=== PATIENT | female | born 1970 | race Caucasian/White ===

== ENCOUNTER 2017-03-01 06:50 | Day surgery (SDC) | payer BC ==
[~2017-03-01] VITALS: Ht 172.7 cm; Wt 101.6 kg
[~2017-03-01 06:50] MED LIST: ADIPEX-P37.5 MG PO; MULTIVITAMINS1 EAC7 PO; VITAMIN D2000 UNI1 PO
[2017-03-01] MEDS ORDERED: WELLBUTRIN SR100 MG PO (07:44)
[2017-03-01] MEDS ORDERED: ZOLOFT50 MG PO (07:45)
[2017-03-01] MEDS ORDERED: OXYCODON-ACETA1 EAC2 PO (11:29)
[2017-03-01] MEDS ORDERED: IBUPROFEN600 MG PO (11:29)
[2017-03-01] MEDS ORDERED: MAPAP325 MG PO (11:29)
--- NOTE | 2017-03-01 11:51 | NUR ---
03/01/17 1151 Wilma Clifton 1118 PT RESP EVEN AND UNLABORED. 1120 ORAL AIRWAY REMOVED, PT MAINTAINING OWN AIRWAY. 1126 O2 REMOVED O2 SAT 100% 1130 MD AT BEDSIDE. 1149 PT VSS HEADED TO DS. 1151 PT O2 SAT 88%, PLACE ON 2L NC. O2 SAT INCREASED TO 97%.
--- NOTE | 2017-03-01 12:01 | NUR ---
ICED WATER AND JELLO GIVEN. CALL LIGHT W/IN REACH.
--- NOTE | 2017-03-01 13:09 | NUR ---
IN TO CHECK ON PT, PT SLEEPING. AWAKEN EASILY. VITALS OBTAINED. PT RATES PAIN A 4/10 AT THE UMBILICUS. JELLO GIVEN AND SANDWICH ORDERED. CALL LIGHT IN PLACE.
--- NOTE | 2017-03-01 14:21 | NUR ---
IN TO CHECK ON PT. PT RATES PAIN A 3/10 AT THE UMBILICUS, TYLENOL GIVEN PER PT REQUEST. PT NOTED TO HAVE EATEN SANDWICH. PT ASSISTED UP TO BATHROOM WITH STANDBY ASSIST FROM RN. PT VOIDED 250 MLS OF CLEAR YELLOW URINE. PT ASSISTED BACK TO BED. TOLERATED WELL. PT TO CALL RIDE HOME.
--- NOTE | 2017-03-01 15:16 | NUR ---
LE: 2021 IN TO SEE PT, PT DRESSED SITTING AT BEDSIDE. PT RATES PAIN 2/10. PT STATE HER RIDE IS HERE. DISCHARGE INSTRUCTIONS GIVEN. RX GIVEN TO PT TO HAND CARRY TO PHARMACY. ALL QUESTIONS ANSERERED. PT AMBULATES TO . TOLERATED WELL AND PT STATES " I AM READY TO GO HOME."
--- NOTE | 2017-03-02 13:21 | OR ---
[facility] [address] [place], [place] [address] Signed DATE OF OPERATION: 03/01/2017 SURGEON: Vin Loo MD PREOPERATIVE DIAGNOSIS: Chronic cholecystitis with gallstones. POSTOPERATIVE DIAGNOSIS: Chronic cholecystitis with gallstones. PROCEDURE: 1. Laparoscopic cholecystectomy with intraoperative cholangiogram. 2. Surgeon-directed fluoroscopy. SURGEON: Vin Loo MD. ANESTHESIA: General endotracheal. Heide Blanco CRNA and local 10 mL of 0.25% Marcaine with epinephrine. INDICATION: This 46-year-old white woman is a patient of KIM Del Valle and has had bouts of right subcostal and right posterior thoracic pain associated with nausea. A gallbladder ultrasound was performed confirming a large number of small gallstones within the gallbladder. She is admitted at this time to undergo cholecystectomy preferably by laparoscopic approach understanding the risks of bleeding, infection, bile duct injury, need for open procedure, and of course failure to cure her symptoms. Understands and she wished to proceed. FINDINGS: The gallbladder was chronically inflamed. The liver was normal. Cholecystectomy was performed showing multiple small yellow mulberry gallstones. Cholangiogram was normal. A few small stones were spilled and these were gathered up entirely. DESCRIPTION OF PROCEDURE: The patient was brought to the operating room, given a general endotracheal anesthetic. Preoperative antibiotic Ancef was given. Sequential compression device stockings used and heparin subcutaneously administered. The abdomen was prepared with a chlorhexidine solution and draped sterilely. An infraumbilical incision was made and using an open Electronically Signed By: VIN LOO MD 03/02/17 1321 PATIENT NAME: SURYA BIANCHI OPERATIVE REPORT DATE OF : 66 PHYSICIAN: VIN LOO MD REPORT #: [id number] REPORT IS CONFIDENTIAL AND NOT TO BE RELEASED WITHOUT AUTHORIZATION [facility] [address] [place], [place] [address] Signed Licha cannula technique, pneumoperitoneum was achieved at level 14 mmHg of carbon dioxide gas. Intraabdominal inspection showed no sign of ascites or carcinomatosis. The liver was normal. The gallbladder was chronically inflamed. Three additional trocars were placed in usual configuration in the subxiphoid, right midclavicular, and right anterior axillary line. The gallbladder was elevated cephalad and retracted laterally. Using blunt and electrocautery dissection, the triangle of Calot dissected free ultimately identifying well the cystic artery and cystic duct. A clip was applied across gallbladder cystic duct junction and a transverse choledochotomy made in the cystic duct. Egress of clear bile was noted upon retrograde milking of the duct. Using an Phillips type cholangiocatheter, intraoperative cholangiography was undertaken showing free flow of contrast in biliary tree with prompt emptying into the duodenum. Retrograde filling was normal and showing no sign of anomaly. Catheter was removed and cystic duct was triply clipped and divided and gallbladder dissected free in a retrograde fashion using electrocautery. The gallbladder did suffer a small defect in it spilling a few small stones. The gallbladder was placed in an endobag and extracted through the infraumbilical port site. Irrigation was undertaken in subhepatic space and small spilled gallstones were gathered up with meticulous care. This includes lateral to the liver and over the dome of the liver. Ultimately, all of the fluid was suctioned free and there were no evident remaining stones. The trocars were removed under direct visualization showing no sign of bleeding. The infraumbilical fascial incision was reapproximated with interrupted 0 Vicryl suture. All wounds were copiously irrigated with saline solution. Skin closed with interrupted 3-0 Vicryl. Steri-Strips were applied. The patient was ultimately extubated and transported to recovery room in good condition having suffered no complications. Sponge, needle, and instruments counts reported as correct x3. MD TIKI Hodges/ALMAL /[id number] Electronically Signed By: VIN LOO MD 03/02/17 1321 PATIENT NAME: SURYA BIANCHI OPERATIVE REPORT DATE OF : 66 PHYSICIAN: VIN LOO MD REPORT #: [id number] REPORT IS CONFIDENTIAL AND NOT TO BE RELEASED WITHOUT AUTHORIZATION [address] [address] Signed cc: KIM Del Valle Electronically Signed By: VIN LOO MD 03/02/17 1321 PATIENT NAME: SURYA BIANCHI CHITRA OPERATIVE REPORT DATE OF : 66 PHYSICIAN: VIN LOO MD REPORT #: [id number] REPORT IS CONFIDENTIAL AND NOT TO BE RELEASED WITHOUT AUTHORIZATION
== END 2017-03-01 15:00 | disposition home or self-care (01) ==
LOC: DS 06:50
PROVIDERS: Surgery
PROC: BF12YZZ Fluoroscopy of Gallbladder using Other Contrast (ICD-10-PCS; 2017-03-01)
PROC: 0FT44ZZ Resection of Gallbladder, Percutaneous Endoscopic Approach (ICD-10-PCS; principal; 2017-03-01 09:00)
DX: K80.10 Calculus of gallbladder with chronic cholecystitis without obstruction (principal); Z90.710 Acquired absence of both cervix and uterus
CPT/HCPCS: 00790; 74300; J0330; J0690; J1100; J1644; J1885; J2250; J2405; J2704; J3010; J7120; Q9967

== ENCOUNTER 2020-02-29 11:23 | Observation (INO) | payer BC ==
[~2020-02-29] VITALS: Ht 172.7 cm; Wt 201.9 kg
[~2020-02-29 11:23] MED LIST changes: +CLOBETASOL PROP15 GM TOP; +COLESTID1 GM PO; +IBUPROFEN600 MG PO; +MAPAP325 MG PO; +ONE DAILY FOR1 EACH PO; +OXYCODON-ACETA1 EAC2 PO; +PHENTERMINE HCL30 MG PO; +PROPRANOLOL HCL20 MG PO; +VITAMIN B122500 MC1 PO; +WELLBUTRIN SR100 MG PO; +ZOLOFT50 MG PO
[2020-02-29] MEDS ORDERED: MELOXICAM7.5 MG PO (11:46)
[2020-02-29] MEDS ORDERED: ADIPEX-P37.5 MG PO (11:47)
--- NOTE | 2020-02-29 16:07 | NUR ---
1535: PT ARRIVED TO MED SURG. PT DENIES ANY PAIN OR NAUSEA AT THIS TIME. ADMITTING THE PT AND GETTING HER READY FOR SURGERY R/T APPENDICITIS. SEE ASSESSMENT.
--- NOTE | 2020-02-29 16:14 | NUR ---
1613: PT TAKEN TO THE OR BY ALISON HOWELL AT THIS TIME.
--- NOTE | 2020-02-29 17:41 | NUR ---
02/29/20 1741 Lexi Draper 1735 PATIENT ARRIVES TO PACU AWAKE OFF/ON, BUT DROWSY. RESP EVEN AND UNLABORED, ROOM AIR SATS >97%. PATIENT ABLE TO PUT HER DENTURES BACK IN AND GLASS ARE BACK ON. PATIENT DENIES PAIN OR NAUSEA.
--- NOTE | 2020-02-29 18:09 | NUR ---
1805: Pt returned to room 123 from PACU. Pt states her pain is a 2/10 and is well controled. VSS. ABD dressings of gauze and tape x3 all CDI with ice in place. SCD's on and running. Pt reminded to not get up without assistance with understanding stated. Call perry within reach.
--- NOTE | 2020-02-29 18:34 | NUR ---
Pt resting in her bed visiting with her . She states her pain level is "good".
--- NOTE | 2020-02-29 19:54 | NUR ---
PATIENT'S ROCEPHIN IS DONE, HOOKING UP LR AT 100MLS/HR. AT BEDSIDE AND CALL LIGHT IN REACH. PAIN IS UNDER CONTROL.
--- NOTE | 2020-02-29 20:29 | NUR ---
PATIENT UP TO THE BATHROOM AND VOIDED AND DID FINE, PATIENT STANDING FOR AWHILE AND DOING GREAT. PATIENT'S IN ROOM AT BED SIDE.
--- NOTE | 2020-02-29 21:04 | OR ---
[facility] [address] [place], [place] [address] Signed DATE OF OPERATION: 02/29/2020 SURGEON: Cheyenne Garcia MD PREOPERATIVE DIAGNOSIS: Acute appendicitis. POSTOPERATIVE DIAGNOSIS: Acute suppurative appendicitis. PROCEDURE: Laparoscopic appendectomy. ESTIMATED BLOOD LOSS: Minimal. INDICATIONS: Yaron is a 49-year-old female, who woke up this morning with periumbilical and right lower quadrant abdominal pain. She has had some nausea and diarrhea. She came to emergency room for evaluation. She was tender lateral to McBurney's point. White count was elevated. Urinalysis probably has some bacteria in it. COVID was negative. CT scan confirmed her inflamed dilated and thickened appendix lateral to the cecum. I have been asked to see her as a general surgeon on-call. I met with Yaron in the emergency room and we reviewed the above findings. We reviewed the location and function of the appendix. We discussed laparoscopic versus open appendectomy. We discussed the expected intraop and postop course. She understands there is risk including, but not limited to bleeding, infection, scarring, change in contour of the skin, damage to bowel, appendiceal stump leak, postoperative intraabdominal abscess, incisional hernias and other unforeseen comorbidities. She had expressed understanding and wished to proceed. PROCEDURE NOTE: Yaron was taken into the operating room and placed in supine position under general endotracheal tube anesthesia. She was given a preoperative antibiotic in the emergency room. She was given subcutaneous heparin along with SCDs. A Fleming catheter was inserted with return of clear yellow urine. She was then prepped and draped in the usual sterile fashion. We placed our trocars in the usual positions under direct visualization of the camera without difficulty. We can see she has had a previous gastric sleeve procedure. She had just a few adhesions in the right mid quadrant of her abdomen from her previous laparoscopic surgeries. It took just a minute with the laparoscopic Metzenbaum scissors to take those down. We then were able to elevate the Electronically Signed By: CHEYENNE GARCIA MD 02/29/20 2104 PATIENT NAME: YARON BIANCHI OPERATIVE REPORT DATE OF : 66 REPORT #: [id number] PHYSICIAN: CHEYENNE GARCIA MD PCP: JERONIMO WYMAN REPORT IS CONFIDENTIAL AND NOT TO BE RELEASED WITHOUT AUTHORIZATION [facility] [address] [place], [place] [address] Signed appendix in the right upper quadrant and dissected out the base of the appendix. The linear stapler was used to divide the appendix from the cecum. Hemostasis was excellent on that staple line. We then used the vascular load on the mesoappendix and the appendiceal artery bled just a bit, so we patched it with our cautery and it gave excellent hemostasis. After this, the right lower quadrant was irrigated and suctioned out until clear. We placed the appendix into an EndoCatch bag and we took it out through the right subcostal trocar site. We used our laparoscopic suturing device to pass 0 Vicryl suture on either side of the fascia of the subxiphoid trocar site. This was tied down to close this fascia primarily. After this, all the trocars were removed and the gas was allowed to escape. We closed the fascia of the supraumbilical trocar site with interrupted [id number] and simple 0-Vicryl sutures. Local anesthetic was injected into all trocar sites. Each trocar site was irrigated and suctioned out until clear. The skin and dermis of each trocar site were closed with interrupted 3-0 subcuticular Monocryl sutures. Dry gauze and tape were applied all incisions. The Fleming catheter was removed in the operating room without difficulty. She was awakened from anesthesia, extubated in the OR, and taken to recovery room in stable condition. Cheyenne Garcia MD ALB/MODL /[id number] cc: KIM Del Valle Copies: JERONIMO WYMAN ~ Electronically Signed By: CHEYENNE GARCIA MD 02/29/20 2104 PATIENT NAME: YARON BIANCHI OPERATIVE REPORT DATE OF : 66 REPORT #: [id number] PHYSICIAN: CHEYENNE GARCIA MD PCP: JERONIMO WYMAN REPORT IS CONFIDENTIAL AND NOT TO BE RELEASED WITHOUT AUTHORIZATION
--- NOTE | 2020-02-29 21:04 | CONS ---
[facility] [address] [place], [place] [address] Signed DATE OF CONSULTATION: 02/29/2020 CHIEF COMPLAINT: Right lower quadrant abdominal pain. HISTORY OF PRESENT ILLNESS: Yaron is a 49-year-old female, who woke up this morning with periumbilical and right lower quadrant abdominal pain. She has had nausea and diarrhea. She came to the emergency room for evaluation. Her white count is elevated and she is tender lateral to McBurney point. CT scan shows inflamed, thickened, dilated appendix lateral to the cecum. I was asked to see her as a general surgeon on-call. In the meantime, her COVID test came back negative and she has been given her antibiotic, cefoxitin. PAST MEDICAL HISTORY: Obesity. PAST SURGICAL HISTORY: Laparoscopic cholecystectomy, laparoscopic gastric sleeve procedure with Dr. Wood at [place], [place], laparoscopic hysterectomy, laparoscopic bilateral tubal ligation, and tonsillectomy and adenoidectomy. SOCIAL HISTORY: She quit smoking. She does not drink. She is to [facility] At [phone]. She has the [employer] for the traits. Jeronimo Ellsworth is the primary care provider. She has 3 children. She prefers the [facility], and of course, she drives. FAMILY HISTORY: Father had dementia and stroke. Mother had gallbladder cancer, but lived. REVIEW OF SYSTEMS: She had 10 systems reviewed and there were no new findings. ALLERGIES: None. MEDICATIONS: Vitamin D, Wellbutrin, Zoloft, multivitamin, meloxicam, and phentermine. PHYSICAL EXAMINATION: VITAL SIGNS: Blood pressure is 104/74, heart rate 70, respiratory rate 18, temperature is 97.7. She is 99% on room air. She is 5 feet 8 inches at 101 kg. GENERAL: Yaron is a 49-year-old female lying supine in her ER bed, watching TV. She does not appear Electronically Signed By: CHEYENNE GARCIA MD 02/29/20 2104 PATIENT NAME: YARON BIANCHI CONSULTATION DATE OF : 66 REPORT #: [id number] PHYSICIAN: CHEYENNE GARCIA MD PCP: JERONIMO ELLSWORTH REPORT IS CONFIDENTIAL AND NOT TO BE RELEASED WITHOUT AUTHORIZATION [facility] [address] [place] [id number] Signed systemically ill or toxic. LUNGS: Generally clear to auscultation bilaterally. HEART: Regular rate and rhythm. ABDOMEN: Soft and flat, but tender lateral to McBurney point. LABORATORY DATA: Her white blood cell count is 13.5, neutrophils are 86. Electrolytes unremarkable. Albumin is 4.1. Urinalysis did show some bacteria. COVID test just came back negative. EKG is pending. RADIOGRAPHIC STUDIES: A CT scan of the abdomen and pelvis was reviewed along with the report. One can easily see a thickened, dilated, inflamed appendix lateral to the cecum. ASSESSMENT/PLAN: Yaron is a 49-year-old female, who presents with acute appendicitis. We discussed the location and function of the appendix. We have discussed laparoscopic versus open appendectomy. We have reviewed the expected intraop and postop course. There is risk of surgery including, but not limited to bleeding, infection, scarring, change in contour of the skin, damage to bowel, appendiceal stump leak, postoperative intraabdominal abscess, incisional hernias, and other unforeseen comorbidities. She has expressed understanding and would like to proceed. Cheyenne Garcia MD ALB/MODL /[id number] cc: MD Jeronimo Levy PA Copies: CHEYENNE GARCIA MD, LINDA PA ~ Electronically Signed By: CHEYENNE GARCIA MD 02/29/20 2104 PATIENT NAME: YARON BIANCHI CONSULTATION DATE OF : 66 REPORT #: [id number] PHYSICIAN: CHEYENNE GARCIA MD PCP: JERONIMO ELLSWORTH REPORT IS CONFIDENTIAL AND NOT TO BE RELEASED WITHOUT AUTHORIZATION
--- NOTE | 2020-02-29 21:32 | NUR ---
PATIENT UP AND WALKING IN RROM NOW AND HAS HAD 1ST POST-OP VOID. STEADY ON HER FEET. IV INFUSING AND PATIENT'S PAIN IS UNDER CONTROL AND LAP SITES ARE CDI. BOWEL TONES HYPOACTIVE BUT PRESENT IN ALL 4 QUADS. CALL LIGHT IN REACH AND SPOUSE IN ROOM AT BEDSIDE.
--- NOTE | 2020-02-29 22:42 | NUR ---
PATIENT RESTING QUIETLY IN BED, LIGHTS DOWN, NO NEEDS AT THIS TIME, CALL LIGHT IN REACH.
--- NOTE | 2020-03-01 00:45 | NUR ---
PATIENT JUST UP TO VOID, 1PSBA, AND BACK TO BED WITH PR INTERN'S HELP. PATIENT'S PAIN IS WELL CONTROLLED AND NO OTHER NEEDS AT THIS TIME. CALL LIGHT IN REACH.
--- NOTE | 2020-03-01 00:51 | NUR ---
PT WAS UP TO VOID, HAS RETURNED TO BED, SCD'S ON AND FUNCTIONING PROPERLY, NO FURTHER NEEDS AT THIS TIME
--- NOTE | 2020-03-01 02:52 | NUR ---
PATIENT HAS BEEN RESTING QUIETLY AND PAIN HAS BEEN UNDER CONTROL. 1PSBA TO THE BATHROOM WHEN NEEDED. TRY TO GET SOME MORE SLEEP AT THIS TIME. CALL LIGHT IN REACH.
--- NOTE | 2020-03-01 06:11 | NUR ---
PT CALLED D/T BEEPING IV. ASSISTED PT TO THE RESTROOM AND BACK TO BED. NEW BAG OF IV FLUID IS NOW INFUSING. PT ALSO REPORTS PAIN AT 4/10, ADMINISTERED NORCO. PROVIDED PT WITH JELLO, FRESH WATER AND APPLEJUICE. SHE DENIES FURTHER NEEDS AT THIS TIME. CALL LIGHT IS CLOSE.
--- NOTE | 2020-03-01 06:41 | NUR ---
PATIENT'S PAIN HAS BEEN WELL CONTROLLED MOST OF THE NIGHT UNTIL 4 ABD PAIN THIS AM WHEN SHE GOT 1 NORCO. PATIENT COULD BE INDEPENDANT IN ROOM, BUT HAS HAD 1PSBA FOR THE NIGHT. DRESSINGS LOOK GOOD, ONE HAS A LITTLE BIT OF PINK DRAINAGE AND OTHERWISE PATIENT HAS DONE WELL.
--- NOTE | 2020-03-01 06:46 | NUR ---
IN TO GET VITALS/I&Os DONE, PT C/O PAIN IN ABD MOVING UP TO HER NECK, ASKING ABT HOW LONG FOR PAIN MED TO TAKE AFFECT, WILL CHAT WITH RN, NO FURHTER NEEDS AT THIS TIME
--- NOTE | 2020-03-01 07:36 | NUR ---
0700: Report received from Ricardo HOWELL. Pt resting in her bed with her call perry within reach. She states her pain is a 4-5 at this time.
--- NOTE | 2020-03-01 07:50 | NUR ---
PATIENT RESTING IN BED. WHITE BOARD UPDATED. CALL LIGHT WITHIN REACH. NO OTHER NEEDS AT THIS TIME
[2020-03-01] MEDS ORDERED: BUPROPION XL150 MG PO (08:16)
--- NOTE | 2020-03-01 08:16 | NUR ---
PT RESTING IN HER BED AND RATES HER PAIN AT A 4-[address] GARCIA INTO THE ROOM AND IS FOLLOWING UP WITH THE PT. GAUZE AND TAPE ABD DRESSING ALL REMAINS INTACT WITH SOME SHADOWING ON ONE OF THEM. PT DENIES ANY NAUSEA AND ONLY STATES THAT SHE IS HUNGRY AND WANTS HER DIET MD LEAH AWARE. PT DENIES ANY OTHER PROBLEMS. SEE ASSESSMENT.
--- NOTE | 2020-03-01 10:10 | NUR ---
ABD DRESSINGS REMOVED ORDERED, SITES ALL APPEAR HEALTHY. PT GETTING READY FOR A SHOWER AT THIS TIME WITH THE HELP OF THE HAND CEMENTER.
--- NOTE | 2020-03-01 10:17 | NUR ---
PATIENT RESTING IN BED. VITAL SIGNS AND I&O DONE. IV WRAPPED. SETS UP BATHROOM FOR SHOWER. CALL LIGHT WITHIN REACH. NO OTHER NEEDS AT THIS TIME
--- NOTE | 2020-03-01 10:53 | NUR ---
PT RESTING IN HER BED FOLLOWING HER SHOWER. THE 3 ABD INCISION SITES ALL APPEAR HEALTHY AND NO DRAINAGE NOTED AND ALL ARE OPEN TO AIR. IV FLUID RESTARTED ORDER. CALL BURGOS WITHIN REACH.
--- NOTE | 2020-03-01 10:59 | NUR ---
PT AMBULATING IN THE HALLS WITH THE POT BUILDER AT THIS TIME.
--- NOTE | 2020-03-01 11:07 | NUR ---
PATIENT WAS RESTING IN BED. PATIENT AMBULATING IN THE HALLWAY. ONE PERSON ASSISTING. PT BACKS TO BED. CALL LIGHT WITHIN REACH. NO OTHER NEEDS AT THIS TIME
--- NOTE | 2020-03-01 12:38 | EKG ---
[facility] [address] [facility] [place], [place] [address] Signed Normal sinus rhythm Normal ECG No previous ECGs available Confirmed by NOEMÍ TURNER DO ([id number]) on 03/01/2020 12:38:49 PM Electronically Signed By: NOEMÍ TURNER DO 03/01/20 1238 PATIENT NAME: SURYA BIANCHI Electrocardiogram DATE OF : 66 PHYSICIAN: NOEMÍ TURNER DO REPORT #: [id number] REPORT IS CONFIDENTIAL AND NOT TO BE RELEASED WITHOUT AUTHORIZATION
--- NOTE | 2020-03-01 13:38 | NUR ---
PT DENIES ANY PAIN AT THIS TIME. SHE ATE 100% OF HER (SOFT) DIET AND CONTINUES TO DENY NAUSEA OR PROBLEMS AFTER EATING. PT HAS BEEN UP TWICE AND HAS WALKED TWO LAPS EACH TIME. PT'S INCISIONS CONTINUE TO APPEAR HEALTHY WITH NO DRAINAGE NOTED. CALL BURGOS WITHIN REACH.
--- NOTE | 2020-03-01 13:40 | NUR ---
PATIENT AMBULATING IN THE HALLWAY.
--- NOTE | 2020-03-01 13:51 | NUR ---
PATIENT RESTING IN BED. VITAL SIGNS AND I&O DONE. CALL LIGHT WITHIN REACH. NO OTHER NEEDS AT THIS TIME
--- NOTE | 2020-03-01 15:55 | NUR ---
Pt awoke from a nap and she states she has some pain but states that it is acceptable, and she denies any need for anything for it. Pt now ambulating in the halls for the third time this shift.
--- NOTE | 2020-03-01 17:45 | NUR ---
PATIENT RESTING IN BED. VITAL SIGNS AND I&O DONE. CALL LIGHT WITHIN REACH. NO OTHER NEEDS AT THIS TIME
--- NOTE | 2020-03-01 19:08 | NUR ---
PT IS DOING WELL AND REQUESTED TO BE DISCHARGED. DR GARCIA CALLED AND UPDATED AND A DC ORDER GIVEN.
[2020-03-01] MEDS ORDERED: NORCO 10-325 T1 EACH PO (19:45)
[2020-03-01] MEDS ORDERED: BACTRIM DS TAB1 EACH PO (19:46)
--- NOTE | 2020-03-01 20:17 | NUR ---
PATIENT'S VS STABLE, OP SITES LOOK GREAT AND WELL APPROXIMATED, PATIENT'S PAIN UNDERCONTROL AT 4/10, TAKING HER HOME, TAKEN TO DOOR IN W/C. PATIENT HAS TAKE HOME PACK OF NORCO AND HER RX'S TO BE FILLED IN THE MORNING WEL A COPY OF HER DC INSTRUCTIONS.
--- NOTE | 2020-03-05 13:18 | PATH ---
[facility] [address] [place], [place] [address] Signed SPECIMEN(S): A APPENDIX SPECIMEN SOURCE: A. APPENDIX CLINICAL HISTORY: Acute appendicitis. FINAL PATHOLOGIC DIAGNOSIS: Appendix, appendectomy: - Acute appendicitis with periappendicitis. NAL:caw:C2NR MICROSCOPIC EXAMINATION: Histologic sections of all submitted blocks are examined by light microscopy. These findings, together with the gross examination, support the pathologic diagnosis. GROSS DESCRIPTION: The specimen, labeled "DJ, A.," and designated on the requisition "appendix," is received in formalin and consists of Specimen: Appendix with mesoappendix. Dimensions: 10.5 x 1.3 cm. Serosa: Mccrary-brown with sloughing. Perforation: Not grossly identified. Inking: Staple line is inked black. Mucosa: Thickened, mccrary and mottled brown. Fecalith: Not grossly identified. Additional: Distal tip trisected longitudinally. Air Traffic Control Equipment Repairer sections are submitted in cassettes (A1-A2). AT (under the direct supervision of a pathologist) The Gross Description was prepared using a voice recognition system. The report was reviewed for accuracy; however, sound-alike word errors, addition and/or deletions may occur. If there is any question about this report, please contact Client Services. PERFORMING LABORATORY: The technical component was performed by [employer], [address] [place] [id number] (Rfid Specialist: Rashmi Mcclure MD; CLIA# [id number]). [facility], [address] [facility]. 107, PATIENT NAME: SURYA BIANCHI PATHOLOGY DATE OF : 66 REPORT #: [id number] PHYSICIAN: IN[facility] PATHOLOGY PCP: JERONIMO WYMAN REPORT IS CONFIDENTIAL AND NOT TO BE RELEASED WITHOUT AUTHORIZATION [facility] [address] [facility] [place] [address] Signed [place] [id number] (CLIA# [id number]). Diagnostician: Brionna Elder MD Pathologist Electronically Signed 03/05/2020 Copies: ~ PATIENT NAME: SURYA BIANCHI PATHOLOGY DATE OF : 66 REPORT #: [id number] PHYSICIAN: IN[facility]S PATHOLOGY PCP: JERONIMO WYMAN REPORT IS CONFIDENTIAL AND NOT TO BE RELEASED WITHOUT AUTHORIZATION
== END 2020-03-01 20:17 | disposition home or self-care (01) ==
LOC: ED 11:23 → MS 11:25
PROVIDERS: ADMIT Colon & Rectal Surgery; ATTEND Colon & Rectal Surgery
PROC: 0DTJ4ZZ Resection of Appendix, Percutaneous Endoscopic Approach (ICD-10-PCS; principal; 2020-02-29 16:26)
DX: K35.80 Unspecified acute appendicitis (principal); I10 Essential (primary) hypertension; E66.9 Obesity, unspecified; Z87.891 Personal history of nicotine dependence; Z68.33 Body mass index [BMI] 33.0-33.9, adult; Z79.899 Other long term (current) drug therapy; Z79.1 Long term (current) use of non-steroidal anti-inflammatories (NSAID); Z90.49 Acquired absence of other specified parts of digestive tract; Z98.84 Bariatric surgery status; Z90.710 Acquired absence of both cervix and uterus; Z98.51 Tubal ligation status; Z20.828 Contact with and (suspected) exposure to other viral communicable diseases
CPT/HCPCS: 00840; 74177; 80053; 81001; 83690; 85025; 87088; 93005; 93010; 94760; 96365; 96372; 96375; 99285-25; C9803; G0378; J0131; J0330; J0694; J0696; J1100; J1170; J1650; J1885; J2001; J2405; J2704; J3010; J7030; J7121; Q9967; U0003

== ENCOUNTER 2020-12-10 13:42 | Emergency (ER) | payer BC ==
[~2020-12-10] VITALS: Ht 172.7 cm; Wt 91.6 kg
[~2020-12-10 13:42] MED LIST changes: +BACTRIM DS TAB1 EACH PO; +BUPROPION XL150 MG PO; +MELOXICAM7.5 MG PO; +NORCO 10-325 T1 EACH PO
--- NOTE | 2020-12-11 15:49 | EKG ---
[facility] [address] [facility] [place] [address] Signed Normal sinus rhythm Minimal voltage criteria for LVH, may be normal variant Borderline ECG When compared with ECG of 29-FEB-2020 15:18, No significant change was found Confirmed by CHACORTA LEACH MD ([id number]) on 12/11/2020 3:49:15 PM Electronically Signed By: CHACORTA ELACH MD 12/11/20 1549 PATIENT NAME: SURYA BIANCHI CHITRA Electrocardiogram DATE OF : 66 PHYSICIAN: CHACORTA LEACH MD REPORT #: [id number] REPORT IS CONFIDENTIAL AND NOT TO BE RELEASED WITHOUT AUTHORIZATION
== END 2020-12-10 21:35 | disposition home or self-care (01) ==
LOC: ED 13:42
DX: U07.1 COVID-19 (principal); J12.82 Pneumonia due to coronavirus disease 2019; Z87.891 Personal history of nicotine dependence; Z79.899 Other long term (current) drug therapy
CPT/HCPCS: 71045; 80053; 83735; 83880; 84484; 85025; 85379; 93005; 93010; 96374; 99285-25; J1885; M0243; Q0244